=== PATIENT | male | born 1995 | race Caucasian/White ===

== ENCOUNTER 2021-09-21 12:22 | Emergency (ER) | payer OTHER ==
[2021-09-21 12:28] VITALS: BP 129/78; PULSE 104; RESP 18; TEMP 99.4
--- NOTE | 2021-09-21 13:06 | ED ---
General Adult HPI - General Chief complaint: Upper Respiratory Infection Stated complaint: Covid Test Time Seen by Provider: 09/21/21 12:30 Source: patient Mode of arrival: ambulatory Limitations: no limitations - History of Present Illness Initial comments: 26-year-old male presents to the emergency room for a COVID-19 test. Patient states that he tested positive yesterday at home but needs a PCR test for work. Patient states that he has had symptoms for about 3 days now. Patient has had fevers on and off, congestion, sore throat, and loss of taste. Patient denies any shortness of breath or chest pain.Patient has no other complaints at this time including shortness of breath, chest pain, abdominal pain, nausea or vomiting, headache, or visual changes. - Related Data Allergies Allergy/AdvReac Type Severity Reaction Status Date / Time No Known Allergies Allergy Verified 09/21/21 12:28 Review of Systems ROS Statement: Those systems with pertinent positive or pertinent negative responses have been documented in the HPI. ROS Other: All systems not noted in ROS Statement are negative. Past Medical History Past Medical History: No Reported History History of Any Multi-Drug Resistant Organisms: None Reported Additional Past Surgical History / Comment(s): testicular surgery Past Psychological History: No Psychological Hx Reported Smoking Status: Never smoker Past Alcohol Use History: Occasional Past Drug Use History: None Reported General Exam Limitations: no limitations General appearance: alert, in no apparent distress Head exam: Present: atraumatic Eye exam: Present: normal appearance, PERRL, EOMI. Absent: scleral icterus, conjunctival injection ENT exam: Present: normal exam, mucous membranes moist Neck exam: Present: normal inspection, full ROM. Absent: tenderness Respiratory exam: Absent: respiratory distress, wheezes Cardiovascular Exam: Present: regular rate, normal rhythm, normal heart sounds Course Vital Signs 09/21/21 12:24 Temperature 99.4 F Pulse Rate 104 H Respiratory 18 Rate Blood Pressure 129/78 O2 Sat by Pulse 100 Oximetry Medical Decision Making - Medical Decision Making Vitals are stable. Patient is well appearing. Patient did test positive for COVID-19. We are currently using [place] prioritization guidelines for sotrovimab, which patient does not qualify for. I encouraged him to take vitamins and take Motrin and Tylenol as well as drink plenty of fluids. He will follow-up with his doctor. He will return here for any worsening symptoms. - Lab Data Lab Results 09/21/21 Range/Units 12:31 Coronavirus (PCR) Detected A (Not Detectd) Disposition Clinical Impression: COVID-19 Disposition: HOME SELF-CARE Condition: Good Instructions (If sedation given, give patient instructions): Coronavirus Disease 2019 (COVID-19) Additional Instructions: Take vitamin C, D, and zinc [id number]. Take Motrin and Tylenol for fever. Follow-up with your doctor. Return to the emergency room for any worsening symptoms. Is patient prescribed a controlled substance at d/c from ED?: No Referrals: Katelyn Kwan MD [STAFF PHYSICIAN] - 1-2 days Time of Disposition: 13:04
== END 2021-09-21 13:23 | disposition home or self-care (01) ==
LOC: EC 12:22
DX: U07.1 COVID-19 (principal)
CPT/HCPCS: 87635; 99283